=== PATIENT | male | born 1965 | race Caucasian/White ===

== ENCOUNTER 2018-03-22 09:48 | Inpatient (IN) | payer BC ==
--- OUTSIDE RECORDS SUMMARY | 2018-03-22 09:50 | XMS REPORT | Clinical Summary ---
:1965 Author Organization [facility] Address [address] [place] [address] Care Team Providers Name Role Phone Kelley Reyna MD Primary Care Provider Allergies No Known Allergies Current Medications Prescription Sig. Disp. Refills Start Date End Date Status amLODIPine (NORVASC) 2.5 Take 1 tablet 03/11/2018 Active mg tablet by mouth daily. hydroCHLOROthiazide Take 1 tablet 02/15/2018 Active (HYDRODIURIL) 12.5 MG by mouth tablet daily. losartan (COZAAR) 100 MG Take 1 tablet 1 02/15/2018 Active tablet by mouth daily. buPROPion HCl, smoking Take 150 mg 60 tablet 0 03/13/2018 Active deter, (ZYBAN) 150 mg by mouth 2 tablet extended release 12 (two) times a hr day. amoxicillin-pot Take 1 tablet 28 tablet 0 03/21/2018 04/04/2018 Active clavulanate (AUGMENTIN) by mouth 2 875-125 mg per tablet (two) times a day for 14 days. Active Problems Problem Noted Date Cough 03/15/2018 Abnormal CXR 03/15/2018 Tobacco abuse 03/15/2018 Encounters Date Type Specialty Care Team Description 03/21/2018 Orders Only Pulmonology Esther Rios MD Cavitating mass of lung (Primary Dx) 03/20/2018 Orders Only Pulmonology Afia Bethea MA Cough; Abnormal CXR; Tobacco abuse 03/15/2018 Telephone Pulmonology Afia Bethea MA 03/13/2018 Office Visit Pulmonology Esther Rios MD Cough (Primary Dx) ; Abnormal CXR; Tobacco abuse after 03/21/2017 Social History Tobacco Use Types Packs/Day Years Used Date Never Assessed Sex Assigned at Date Recorded Not on file Last Filed Vital Signs Not on file Plan of Treatment Date Type Specialty Care Team Description 04/04/2018 Clinical Support Pulmonology 04/04/2018 Clinical Support Pulmonology 04/04/2018 [place] [address] [address] Health Maintenance Due Date Last Done Comments COLONOSCOPY 2017 SHINGRIX VACCINE (#1) 2017 INFLUENZA VACCINE 06/12/[address] Chest Wo Contrast (03/20/2018 11:10 AM)after 03/21/2017 Insurance Payer Benefit Plan / Group Subscriber ID Type Phone Address [employer] xxxxxxxxxxxx HMO Home: [address] [place], [place] [phone] [address]
[2018-03-22 11:51] LABS: Absolute Lymphocytes (CBC) 2.9 K/uL (0.7-4.9); Absolute Monocytes 0.6 K/uL (0.1-1.3); Absolute Neutrophil 4.8 K/uL (1.8-8.0); Basophils % 0.8 % (0-1.3); Eosinophils % 0.8 % (0-4.4); Hematocrit 45.2 % (39.6-49.0); Lymphocytes % 34.6 % (15.3-44.8); MCH 30.2 pg (27.0-35.0); MCV 87.4 fL (80-100); MPV 7.9 fL (7.6-11.3); RBC Red Blood Cell Count 5.17 M/uL (4.33-5.43)
[2018-03-22 11:59] LABS: Bicarbonate 32 mEq/L (21-31); Glucose Level 126 mg/dL (65-120); Sodium Level 135 mEq/L (135-145)
[2018-03-22 12:05] LABS: ALT/SGPT 38 IU/L (10-60); AST/SGOT 37 IU/L (10-42); Albumin 4.5 g/dL (3.2-5.5); Alkaline Phosphatase 65 IU/L (42-121); BUN Blood Urea Nitrogen 12 mg/dL (6-20); Bilirubin Direct 0.1 mg/dL (0-0.2); Bilirubin Total 0.7 mg/dL (0.3-1.2); Protein, Total 7.9 g/dL (6.0-8.3)
--- NOTE | 2018-03-22 12:56 | ER ---
Nurse's Notes [facility] Name: Sherwin Vasquez Age: 52 yrs Sex: Male : 1965 Arrival Date: 03/22/2018 Time: 10:00 Bed 30 Private MD: Diagnosis: Pneumonia due to other specified bacteria Presentation: 03/22 10:14 Presenting complaint: Patient states: Sent by Sound Recordist for blood work and aj evaluation after having CT in this facility. Patient states, "my doctor told me to come here and have your doctor call him and he would explain what was going on." Denies night sweats, or coughing up blood. Transition of care: patient was not received from another setting of care. Onset of symptoms was March 22, 2018. Initial Sepsis Screen: Does the patient meet any 2 criteria? No. Patient's initial sepsis screen is negative. Does the patient have a suspected source of infection? No. Patient's initial sepsis screen is negative. Care prior to arrival: None. 10:14 Method Of Arrival: Ambulatory aj 10:14 Acuity: KAYLI 3 aj Triage Assessment: 10:17 General: Appears in no apparent distress. comfortable, Behavior is cooperative, aj appropriate for age, anxious. Pain: Denies pain. Neuro: Level of Consciousness is awake, alert, obeys commands, Oriented to person, place, time, situation, Appropriate for age. Respiratory: Airway is patent Respiratory effort is even, unlabored, Respiratory pattern is regular, symmetrical. Derm: Skin is intact, is healthy with good turgor, Skin is pink, warm \\T\\ dry. normal. Historical: - Allergies: 10:17 No Known Allergies; aj - PMHx: 10:17 Hypertension; aj - PSHx: 10:17 Cholecystectomy; Knee surgery; aj - Immunization history:: Adult Immunizations up to date. - Social history:: Smoking status: Patient uses tobacco products, smokes one pack cigarettes per day. Screenin:45 Abuse screen: Denies threats or abuse. Denies injuries from another. Nutritional aj1 screening: No deficits noted. Tuberculosis screening: No symptoms or risk factors identified. 16:33 Fall Risk No fall in past 12 months (0 pts). No secondary diagnosis (0 pts). IV access aj1 (20 points). Ambulatory Aid- None/Bed Rest/Nurse Assist (0 pts). Gait- Normal/Bed Rest/Wheelchair (0 pts) Mental Status- Oriented to own ability (0 pts). Total Flores Fall Scale indicates No Risk (0-24 pts). Assessment: 10:45 General: Appears in no apparent distress. comfortable, Behavior is calm, cooperative, aj1 appropriate for age. Pain: Denies pain. Neuro: Level of Consciousness is awake, alert, obeys commands, Oriented to person, place, time, situation, Speech is normal, Facial symmetry appears normal. Cardiovascular: Patient's skin is warm and dry. Respiratory: Airway is patent Respiratory effort is even, unlabored, Respiratory pattern is regular, symmetrical, Breath sounds are clear bilaterally. Denies cough, shortness of breath. GI: No signs and/or symptoms were reported involving the gastrointestinal system. : No signs and/or symptoms were reported regarding the genitourinary system. EENT: No signs and/or symptoms were reported regarding the EENT system. Derm: No signs and/or symptoms reported regarding the dermatologic system. Skin is pink, warm \\T\\ dry. normal. Musculoskeletal: No signs and/or symptoms reported regarding the musculoskeletal system. Circulation, motion, and sensation intact. 11:45 Reassessment: Patient appears in no apparent distress at this time. No changes from aj1 previously documented assessment. Patient and/or family updated on plan of care and expected duration. Pain level reassessed. Patient is alert, oriented x 3, equal unlabored respirations, skin warm/dry/pink. 12:41 Reassessment: Patient appears in no apparent distress at this time. No changes from aj1 previously documented assessment. Patient and/or family updated on plan of care and expected duration. Pain level reassessed. Patient is alert, oriented x 3, equal unlabored respirations, skin warm/dry/pink. 13:39 Reassessment: Patient appears in no apparent distress at this time. No changes from aj1 previously documented assessment. Patient and/or family updated on plan of care and expected duration. Pain level reassessed. Patient is alert, oriented x 3, equal unlabored respirations, skin warm/dry/pink. 14:45 Reassessment: Patient appears in no apparent distress at this time. No changes from aj1 previously documented assessment. Patient and/or family updated on plan of care and expected duration. Pain level reassessed. Patient is alert, oriented x 3, equal unlabored respirations, skin warm/dry/pink. 15:57 Reassessment: Patient appears in no apparent distress at this time. No changes from aj1 previously documented assessment. Patient and/or family updated on plan of care and expected duration. Pain level reassessed. Patient is alert, oriented x 3, equal unlabored respirations, skin warm/dry/pink. 16:00 Reassessment: Attempted to call report to 2nd floor placed on hold for 6 minutes before aj1 hanging up. Will call back. 16:11 Reassessment: Attempted to call report to 2nd floor, community marketing manager Marlena states aj1 the nurse is unable to take report at this time as she is admitting another patient, but she will call me back when she is available. 16:32 Reassessment: Report given to SEYMOUR Artis on 2nd floor. Registration notified that patient jessica is ready to be transferred upstairs. Vital Signs: 10:17 BP 144 / 96; Pulse 93; Resp 20; Temp 98.2; Pulse Ox 99% on R/A; Weight 63.5 kg; Height aj 5 ft. 6 in. (167.64 cm); 11:45 BP 150 / 97; Pulse 82; Resp 18; Pulse Ox 100% on R/A; aj1 12:41 BP 139 / 96; Pulse 91; Resp 18; Pulse Ox 98% on R/A; aj1 13:39 BP 132 / 84; Pulse 104; Resp 18; Pulse Ox 100% on R/A; aj1 14:30 BP 122 / 76; Pulse 79; Resp 18; Pulse Ox 98% on R/A; aj1 15:15 BP 112 / 78; Pulse 82; Resp 18; Temp 98.8(O); Pulse Ox 98% on R/A; aj1 10:17 Body Mass Index 22.60 (63.50 kg, 167.64 cm) aj ED Course: 10:00 Patient arrived in ED. rg4 10:17 Triage completed. aj 10:17 Arm band placed on left wrist. Patient placed in an exam room. aj 10:22 Cj Howard PA is PHCP. jr8 10:22 Jose Enrique Morse MD is Attending Physician. jr8 10:38 Angelica Rollins, SEYMOUR is Primary Nurse. aj1 10:45 Patient has correct armband on for positive identification. Bed in low position. Call aj1 light in reach. Side rails up X 1. teletypesetter monitor on. Pulse ox on. NIBP on. 10:45 No provider procedures requiring assistance completed. aj1 11:19 EKG done, by engineering technical specialist. reviewed by Cj SWEET. tc 11:30 Inserted saline lock: 20 gauge in right antecubital area, using aseptic technique. aj1 Blood collected. 11:40 First set of blood cultures drawn by az. aj1 12:55 Halima Cruz MD is Hospitalizing Provider. jr8 16:32 Patient admitted, IV remains in place. aj1 Administered Medications: 13:15 Drug: Zosyn 3.375 grams Route: IVPB; Infused Over: 60 mins; Site: right antecubital; aj1 15:58 Follow up: IV Status: Completed infusion; IV Intake: 100ml aj1 15:47 Drug: LevaQUIN 500 mg Volume: 100 ml; Route: IVPB; Infused Over: 60 mins; Site: right 1 antecubital; 16:33 Follow up: IV Status: Infusion continued upon admission aj1 Intake: 15:58 IV: 100ml; Total: 100ml. aj1 Outcome: 12:55 Decision to Hospitalize by Provider. jr8 16:33 Admitted to Med/surg accompanied by tech, via wheelchair. aj1 16:33 Condition: stable 16:33 Discharge instructions given to patient, Instructed on the need for admit, Demonstrated understanding of instructions. 16:45 Patient left the ED. aj1 Signatures: Angelica Rollins, RN RN aj1 Jyothi Martínez RN Cj Munoz PA PA jr8 Christine Ravi, co founder & ceo EKG Ttc Tara Rich rg4
--- NOTE | 2018-03-22 12:56 | EDPHYS ---
Physician Documentation [facility] Name: Sherwin Vasquez Age: 52 yrs Sex: Male : 1965 Arrival Date: 03/22/2018 Time: 10:00 Bed 30 Private MD: ED Physician Jose Enrique Morse HPI: 03/22 13:07 This 52 yrs old Male presents to ER via Ambulatory with complaints of jr8 Abnormal Lab Results. cough. 13:07 Onset: The symptoms/episode began/occurred gradually, 2 week(s) ago. Severity of jr8 symptoms: At their worst the symptoms were mild, in the emergency department the symptoms are unchanged. Modifying factors: The symptoms are alleviated by nothing, the symptoms are aggravated by nothing. Associated signs and symptoms: The patient has no apparent associated signs or symptoms. The patient has not experienced similar symptoms in the past. The patient has been recently seen by a physician:. Patient had been complaining of right upper chest pain and mild cough for some time. Had trauma at work and though it may be a broken rib. Had CT xray done and was sent to pulmonology for atypical mass in Right upper lobe of chest. CT confirmed atypical infection cavitary in nature. Cannot r/o TB. Historical: - Allergies: 10:17 No Known Allergies; aj - PMHx: 10:17 Hypertension; aj - PSHx: 10:17 Cholecystectomy; Knee surgery; aj - Immunization history:: Adult Immunizations up to date. - Social history:: Smoking status: Patient uses tobacco products, smokes one pack cigarettes per day. ROS: 13:07 Eyes: Negative for injury, pain, redness, and discharge, ENT: Negative for injury, jr8 pain, and discharge, Neck: Negative for injury, pain, and swelling, Cardiovascular: Negative for chest pain, palpitations, and edema, Abdomen/GI: Negative for abdominal pain, nausea, vomiting, diarrhea, and constipation, Back: Negative for injury and pain, MS/Extremity: Negative for injury and deformity, Skin: Negative for injury, rash, and discoloration, Neuro: Negative for headache, weakness, numbness, tingling, and seizure. 13:07 Respiratory: Positive for cough. Exam: 13:07 Eyes: Pupils equal round and reactive to light, extra-ocular motions intact. Lids and jr8 lashes normal. Conjunctiva and sclera are non-icteric and not injected. Cornea within normal limits. Periorbital areas with no swelling, redness, or edema. ENT: Nares patent. No nasal discharge, no septal abnormalities noted. Tympanic membranes are normal and external auditory canals are clear. Oropharynx with no redness, swelling, or masses, exudates, or evidence of obstruction, uvula midline. Mucous membranes moist. Neck: Trachea midline, no thyromegaly or masses palpated, and no cervical lymphadenopathy. Supple, full range of motion without nuchal rigidity, or vertebral point tenderness. No Meningismus. Cardiovascular: Regular rate and rhythm with a normal S1 and S2. No gallops, murmurs, or rubs. Normal PMI, no JVD. No pulse deficits. Respiratory: Lungs have equal breath sounds bilaterally, clear to auscultation and percussion. No rales, rhonchi or wheezes noted. No increased work of breathing, no retractions or nasal flaring. Abdomen/GI: Soft, non-tender, with normal bowel sounds. No distension or tympany. No guarding or rebound. No evidence of tenderness throughout. Back: No spinal tenderness. No costovertebral tenderness. Full range of motion. Skin: Warm, dry with normal turgor. Normal color with no rashes, no lesions, and no evidence of cellulitis. MS/ Extremity: Pulses equal, no cyanosis. Neurovascular intact. Full, normal range of motion. Neuro: Awake and alert, GCS 15, oriented to person, place, time, and situation. Cranial nerves II-XII grossly intact. Motor strength 5/5 in all extremities. Sensory grossly intact. Cerebellar exam normal. Normal gait. Vital Signs: 10:17 BP 144 / 96; Pulse 93; Resp 20; Temp 98.2; Pulse Ox 99% on R/A; Weight 63.5 kg; Height aj 5 ft. 6 in. (167.64 cm); 11:45 BP 150 / 97; Pulse 82; Resp 18; Pulse Ox 100% on R/A; aj1 12:41 BP 139 / 96; Pulse 91; Resp 18; Pulse Ox 98% on R/A; aj1 13:39 BP 132 / 84; Pulse 104; Resp 18; Pulse Ox 100% on R/A; aj1 14:30 BP 122 / 76; Pulse 79; Resp 18; Pulse Ox 98% on R/A; aj1 15:15 BP 112 / 78; Pulse 82; Resp 18; Temp 98.8(O); Pulse Ox 98% on R/A; aj1 10:17 Body Mass Index 22.60 (63.50 kg, 167.64 cm) aj MDM: 10:22 Patient medically screened. 12:53 Data reviewed: vital signs, nurses notes, diagnostic data from outside facility, CT 8 chest , lab test result(s), EKG. Data interpreted: Pulse oximetry: on room air is 98 %. Interpretation: normal. Counseling: I had a detailed discussion with the patient and/or guardian regarding: the historical points, exam findings, and any diagnostic results supporting the discharge/admit diagnosis, lab results, radiology results, the need for further work-up and treatment in the hospital. Physician consultation: Halima Cruz MD was called at 12:55, was contacted at 12:55, regarding admission, to the medical/surgical unit. consult, patient's condition, and will see patient. 03/22 10:32 Order name: Basic Metabolic Panel; Complete Time: 12:32 03/22 10:32 Order name: BNP; Complete Time: 12:32 03/22 10:32 Order name: CBC with Diff; Complete Time: 11:58 03/22 10:32 Order name: LFT's; Complete Time: 12:32 03/22 10:32 Order name: Blood Culture Adult (2) 03/22 10:32 Order name: Procalcitonin; Complete Time: 13:31 03/22 10:32 Order name: EKG; Complete Time: 10:32 03/22 10:32 Order name: Cardiac monitoring; Complete Time: 12:10 03/22 10:32 Order name: EKG - Nurse/Tech; Complete Time: 12:10 03/22 10:32 Order name: IV Saline Lock; Complete Time: 12:10 03/22 10:32 Order name: Labs collected and sent; Complete Time: 12:10 03/22 11:57 Order name: Diet Regular; Complete Time: 11:57 ag 03/22 10:32 Order name: O2 Per Protocol; Complete Time: 12:10 03/22 10:32 Order name: O2 Sat Monitoring; Complete Time: 12:10 jr8 Administered Medications: 13:15 Drug: Zosyn 3.375 grams Route: IVPB; Infused Over: 60 mins; Site: right antecubital; [facility] 15:58 Follow up: IV Status: Completed infusion; IV Intake: 100ml [facility] 15:47 Drug: LevaQUIN 500 mg Volume: 100 ml; Route: IVPB; Infused Over: 60 mins; Site: right aj1 antecubital; 16:33 Follow up: IV Status: Infusion continued upon admission [facility] Disposition: 03/22/18 12:55 Hospitalization ordered by Halima Cruz for Inpatient Admission. Preliminary diagnosis is Pneumonia due to other specified bacteria. - Bed requested for Telemetry/MedSurg (Inpatient). - Status is Inpatient Admission. [facility] - Condition is Stable. - Problem is new. - Symptoms are unchanged. UTI on Admission? No Addendum: 03/25/2018 08:49 Co-signature as Attending Physician, Jose Enrique Morse MD I agree with the assessment and c gaston plan of care. Signatures: Dispatcher [employer] EDAngelica Escalante RN RN [facility] Jyothi Martínez RN RN aj Anderson, Corey, MD MD cha Roszak, Josh, PA PA jr8 Kimmy Gray Corrections: (The following items were deleted from the chart) 03/22 14:49 12:55 Hospitalization Ordered by Halima Cruz MD for Inpatient Admission. Preliminary ag diagnosis is Pneumonia due to other specified bacteria. Bed requested for Telemetry/MedSurg (Inpatient). Status is Inpatient Admission. Condition is Stable. Problem is new. Symptoms are unchanged. UTI on Admission? No. jr8 16:45 14:49 03/22/2018 12:55 Hospitalization Ordered by Halima Cruz MD for Inpatient [facility] Admission. Preliminary diagnosis is Pneumonia due to other specified bacteria. Bed requested for Telemetry/MedSurg (Inpatient). Status is Inpatient Admission. Condition is Stable. Problem is new. Symptoms are unchanged. UTI on Admission? No. ag
[2018-03-22] MEDS ORDERED: Levofloxacin500mg IV 500 MG/100 ML BAG IV ONE (13:05)
[2018-03-22] MEDS ORDERED: PIPER/TAZO/NS 3.375gm 3.375 GM/100 ML BAG ONE (13:05)
--- NOTE | 2018-03-22 15:50 | EKG ---
Test Date: 2018-03-22 Test Time: 11:08:33 Teacher Lip Reading: TC/V MEASUREMENT RESULTS: Intervals: Rate: 80 SC: 128 QRSD: 100 QT: 366 QTc: 422 [place]: P: 70 SC: 128 QRS: 85 T: 71 INTERPRETIVE STATEMENTS: Normal sinus rhythm Normal ECG No previous ECG available for comparison Electronically Signed On 03-22-18 15:49:01 CDT by David Willis
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
[2018-03-22] MEDS ORDERED: ACETAMINOPHEN 500 MG TAB PO PRN (16:47)
[2018-03-22] MEDS ORDERED: ONDANSETRON 4 MG/2 ML VIAL IV PRN (16:47)
[2018-03-22] MEDS: ENOXAPARIN 40 MG/0.4 ML SQ SCH ×2 (18:00→18:30)
[2018-03-22] MEDS ORDERED: VANCOMYCIN 1.5 GM in NA CHLORIDE 0.9% 500 ML IVPB SCH (18:00)
[2018-03-22] MEDS: CLINDAMYCIN INJ 900 MG in NA CHLORIDE 0.9% 50 ML IV SCH (18:30)
[2018-03-22] MEDS: NA CHLORIDE 0.9% 1,000 ML IV SCH (18:30)
[2018-03-22 18:56] LABS: Urine Appearance CLEAR; Urine Bilirubin NEGATIVE (NEG); Urine Blood NEGATIVE (NEG); Urine Color YELLOW; Urine Glucose NEGATIVE (NEG); Urine Protein NEGATIVE (NEG); Urine Urobilinogen 0.2 mg/dL (0.2-1.0)
[2018-03-22 18:58] LABS: Urine Microscopic Reflex NO UMIC
[2018-03-22] MEDS: CEFEPIME/SWI 1gm 1 GM/10 ML SYR IV SCH (22:06)
[2018-03-23] MEDS: CLINDAMYCIN INJ 900 MG in NA CHLORIDE 0.9% 50 ML IV SCH ×5 (00:03→23:55)
[2018-03-23] MEDS: NA CHLORIDE 0.9% 1,000 ML IV SCH ×4 (05:27→22:47)
[2018-03-23 05:37] LABS: Absolute Lymphocytes (CBC) 3.5 K/uL (0.7-4.9); Absolute Monocytes 0.8 K/uL (0.1-1.3); Absolute Neutrophil 4.7 K/uL (1.8-8.0); Basophils % 0.8 % (0-1.3); Eosinophils % 1.2 % (0-4.4); Hematocrit 41.9 % (39.6-49.0); Lymphocytes % 38.1 % (15.3-44.8); MCH 30.1 pg (27.0-35.0); MCV 88.6 fL (80-100); MPV 7.8 fL (7.6-11.3); Monocytes % 8.6 % (3.3-12.3); RBC Red Blood Cell Count 4.73 M/uL (4.33-5.43)
[2018-03-23 06:13] LABS: Albumin 3.6 g/dL (3.2-5.5); Bilirubin Total 0.7 mg/dL (0.3-1.2); Magnesium 2.1 mg/dL (1.8-2.5); Phosphorus 3.5 mg/dL (2.5-4.3); Potassium 4.3 mEq/L (3.6-5.0); Protein, Total 6.3 g/dL (6.0-8.3)
[2018-03-23] MEDS: VANCOMYCIN/NS 1 gm 1 GM/250 ML BAG IV SCH ×2 (06:34→18:47)
--- NOTE | 2018-03-23 08:06 | RAD REPORT ---
EXAM DESCRIPTION: RAD - Chest Pa And Lat (2 Views) - 03/23/2018 6:28 am CLINICAL HISTORY: Shortness of breath COMPARISON: Chest exam 2010, CT chest March 19 TECHNIQUE: PA and lateral views of the chest were obtained. FINDINGS: The lungs are normal volume. No failure or volume overload. The cluster of cystic thick-wa lled cavitary lesions in the right upper lobe are again identified. No loom changeover operator this short interv al March 19 exam. The minimal tree-in-bud opacification in the left lung field seen on the March [address] is not clearly defined on this examination. If still present this is obscured by the baseline int erstitial pattern. Infectious etiology is favored over neoplastic. TB, fungal infection and cavitating bacterial pneumon ia can given overlapping appearances. No new or progressive lung parenchymal finding seen. Heart size is normal and central vasculature is within normal limits. No pleural effusion or pneumothorax seen. No acute bony finding noted. No ao rtic abnormality. IMPRESSION: Thick walled cavitary lesions of the right upper lobe are again noted similar to the March 19 study. Infection remains favored over cavitary malignancy. No new or progressive finding identifiable from March 19.
[2018-03-23] MEDS ORDERED: CEFEPIME 1 GM/VIAL IV SCH (09:00)
[2018-03-23] MEDS: hydroCHLOROthiazide 12.5 MG CAP PO SCH (09:33)
[2018-03-23] MEDS: LOSARTAN POTASSIUM 50 MG TABLET PO SCH (09:34)
[2018-03-23] MEDS: BUPROPRION HCL S.R. 150MG TAB PO SCH (09:34)
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
[2018-03-23] MEDS: ENOXAPARIN 40 MG/0.4 ML SQ SCH (18:00)
[2018-03-23] MEDS: CEFEPIME/SWI 1gm 1 GM/10 ML SYR IV SCH (21:24)
[2018-03-24 05:16] LABS: Absolute Monocytes 0.6 K/uL (0.1-1.3); Absolute Neutrophil 4.3 K/uL (1.8-8.0); Basophils % 0.4 % (0-1.3); Eosinophils % 1.9 % (0-4.4); Hematocrit 39.9 % (39.6-49.0); Lymphocytes % 43.7 % (15.3-44.8); MCH 30.5 pg (27.0-35.0); MCV 89.5 fL (80-100); MPV 7.9 fL (7.6-11.3); Monocytes % 6.8 % (3.3-12.3); RBC Red Blood Cell Count 4.46 M/uL (4.33-5.43)
[2018-03-24 06:29] LABS: Albumin 3.6 g/dL (3.2-5.5); Bilirubin Total 0.7 mg/dL (0.3-1.2); Magnesium 1.9 mg/dL (1.8-2.5); Phosphorus 3.4 mg/dL (2.5-4.3); Potassium 4.2 mEq/L (3.6-5.0); Protein, Total 6.1 g/dL (6.0-8.3)
[2018-03-24] MEDS: CLINDAMYCIN INJ 900 MG in NA CHLORIDE 0.9% 50 ML IV SCH ×2 (06:36→11:59)
[2018-03-24] MEDS: VANCOMYCIN/NS 1 gm 1 GM/250 ML BAG IV SCH (06:37)
[2018-03-24] MEDS: NA CHLORIDE 0.9% 1,000 ML IV SCH (08:08)
[2018-03-24] MEDS: hydroCHLOROthiazide 12.5 MG CAP PO SCH (08:09)
[2018-03-24] MEDS: BUPROPRION HCL S.R. 150MG TAB PO SCH (08:09)
[2018-03-24] MEDS: LOSARTAN POTASSIUM 50 MG TABLET PO SCH (08:10)
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
[2018-03-24] MEDS ORDERED: VANCOMYCIN 1.25 GM in NA CHLORIDE 0.9% 250 ML IV SCH (18:00)
== END 2018-03-24 15:08 | disposition home or self-care (01) | DRG 206 ==
LOC: ER 09:48 → ERHOLD 12:55 → 2ND 16:23
PROVIDERS: ADMIT Family Medicine; ATTEND Family Medicine
DX: R91.1 Solitary pulmonary nodule (principal); I10 Essential (primary) hypertension; F17.200 Nicotine dependence, unspecified, uncomplicated
CPT/HCPCS: 36415; 71046; 80048; 80053; 80076; 80202; 81003; 83735; 83880; 84100; 84145; 85025; 87040; 87070; 87205; 93005; 94760; 96365; 96366; 99285; J0692; J1650; J2543; J3370; J7030